=== PATIENT | male | born 1930 | race Caucasian/White ===

== ENCOUNTER 2016-11-05 12:04 | Outpatient (CLI) | payer MEDICARE, OTHER | END 2016-11-05 12:05 | disposition home or self-care (01) | DX: E78.5 Hyperlipidemia, unspecified (principal); R97.20 Elevated prostate specific antigen [PSA]; D64.9 Anemia, unspecified ==

== ENCOUNTER 2017-01-14 13:01 | Outpatient (CLI) | payer MEDICARE, OTHER ==
[2017-01-14] MEDS ORDERED: IOPAMIDOL-300 100 ML VIAL IVP ONE (14:30)
== END 2017-01-14 13:02 | disposition home or self-care (01) ==
DX: J90 Pleural effusion, not elsewhere classified (principal); J98.4 Other disorders of lung; R05 Cough; R63.4 Abnormal weight loss
CPT/HCPCS: 36415; 71260; 80048; Q9967

== ENCOUNTER 2017-05-26 13:28 | Outpatient (CLI) | payer MEDICARE, OTHER ==
[2017-05-26 19:40] LABS: PSA FREE 0.755 ng/mL (0.16-2.81)
[2017-05-26 19:41] LABS: PSA TOTAL 7.411 ng/mL (0.000-2.000)
== END 2017-05-26 13:29 | disposition home or self-care (01) ==
LOC: LAB.WCP 13:28
PROVIDERS: ATTEND Family Medicine
DX: R97.20 Elevated prostate specific antigen [PSA] (principal)
CPT/HCPCS: 36415; 84154

== ENCOUNTER 2017-07-21 15:44 | Outpatient (CLI) | payer MEDICARE, OTHER ==
[2017-07-21 19:22] LABS: HEMOGLOBIN A1C 0.3 g/dL
== END 2017-07-21 15:45 | disposition home or self-care (01) ==
LOC: LAB.WCP 15:44
PROVIDERS: ATTEND Family Medicine
DX: R73.01 Impaired fasting glucose (principal)
CPT/HCPCS: 36415; 83036

== ENCOUNTER 2018-02-17 17:23 | Emergency (ER) | payer MEDICARE, OTHER ==
--- NOTE | 2018-02-17 17:43 | ED Physician Documentation ---
PD HPI FOCAL NEURO - Stated complaint Stated Complaint: POSS STROKE - Chief complaint Chief Complaint: Neuro - History obtained from History obtained from: Patient, Family - History of Present Illness Timing - onset: Other (87-year-old gentleman who over the last couple of weeks of is said has been confused, she gives examples such as he did not know which archie to be in while driving. Over the last couple of note days they have noticed a left facial droop. The patient was kind of unaware of this. He is walking okay. He denies a headache. He is right-handed.) Review of Systems Ten Systems: 10 systems reviewed and negative Constitutional: denies: Fever, Chills Cardiac: denies: Chest pain / pressure, Palpitations Respiratory: denies: Dyspnea, Cough GI: denies: Abdominal Pain PD PAST MEDICAL HISTORY - Past Medical History Past Medical History: Yes Cardiovascular: Hypertension Respiratory: COPD, Pneumonia Neuro: None Endocrine/Autoimmune: None GI: None : Benign prostate hypertrophy HEENT: Chronic vision loss Psych: None Musculoskeletal: Osteoarthritis Derm: None - Past Surgical History General: Appendectomy Ortho: Rotator cuff repair HEENT: Cataracts, Tonsil/Adenoidectomy - Present Medications Home Medications: Ambulatory Orders Medication Instructions Recorded Confirmed Carvedilol [Coreg] 6.25 mg PO BID 08/10/16 08/11/16 Meloxicam 15 mg PO DAILY 08/10/16 08/11/16 Tamsulosin [Flomax] 0.4 mg PO DAILY 08/10/16 08/11/16 - Allergies Allergies/Adverse Reactions: Allergies Allergy/AdvReac Type Severity Reaction Status Date / Time Sulfa (Sulfonamide Allergy Rash Verified 08/10/16 13:07 Antibiotics) - Social History Does the pt smoke?: No Smoking Status: Never smoker PD ED PE NORMAL - Vitals Vital signs reviewed: Yes - General General: Alert and oriented X 3, No acute distress, Well developed/nourished - HEENT HEENT: PERRL, EOMI - Neck Neck: Supple, no meningeal sign, No bony TTP - Cardiac Cardiac: Strong equal pulses, Other (Irregularly irregular without murmur) - Respiratory Respiratory: No respiratory distress, Clear bilaterally - Abdomen Abdomen: Normal bowel sounds, Soft, Non tender - Extremities Extremities: No deformity, No tenderness to palpate, Normal ROM s pain - Neuro Neuro: Alert and oriented X 3 Eye Opening: Spontaneous Motor: Obeys Commands Verbal: Oriented GCS Score: 15 - Psych Psych: Normal mood, Normal affect NIHSS - Time Time: 17:38 - Level of Consciousness Level of consciousness: (0) Alert, Keenly responsive LOC Questions: (0) Answers both Q's correct LOC Commands: (0) Performs both correctly - Gaze Best Gaze: (0) Normal - Visual Visual: (0) No loss - Facial Palsy Facial Palsy: (2) Partial paralysis (Left-sided facial palsy) - Motor Arms (both separate) Motor Arm (right): (0) No drift Motor Arm (left): (0) No drift - Motor Legs (both separate) Motor Leg (right): (0) No drift Motor Leg (left): (0) No drift - Limb Ataxia Limb Ataxia: (0) Absent - Sensory Sensory: (0) Normal - Best Language Best Language: (0) No aphasia - Dysarthria Dysarthria: (0) Normal - Extinction and Inattention (formally neg Extinction and inattention: (0) No abnormality - Total Score/Results Total Score/Result: 2 Results - Vitals Vitals: Vital Signs - 24 hr 02/17/18 02/17/18 02/17/18 17:28 19:17 19:30 Temperature 36.8 C Heart Rate 93 85 86 Respiratory 18 19 21 Rate Blood Pressure 147/76 H 160/97 H 168/85 H O2 Saturation 95 92 93 Oxygen O2 Source Room air - EKG (time done) 1744 Rate: Rate (enter#) (85) Rhythm: Atrial fibrillation [place]: Normal QRS: Low voltage Ischemia: Non specific changes Computer interpretation: Agree with computer - Labs Labs: Laboratory Tests 02/17/18 02/17/18 02/17/18 17:38 17:38 17:38 WBC 7.0 RBC 3.50 L Hgb 12.2 L Hct 35.6 L MCV 101.7 H MCH 35.0 H MCHC 34.4 RDW 14.2 Plt Count 122 L MPV 9.1 Neut # 4.4 Lymph # 1.3 L [place] # 0.9 Eos # 0.3 Baso # 0.1 Absolute Nucleated RBC 0.00 Nucleated RBC % 0.0 Manual Slide Review Indicated WBC Morphology NORMAL APPEARANCE Platelet Estimate DECREASED (<130,000) Platelet Morphology NORMAL APPEARANCE RBC Morph Micro Appear NORMAL APPEARANCE PT 12.4 INR 1.1 Sodium 137 Potassium 3.8 Chloride 106 Carbon Dioxide 24 Anion Gap 7.0 BUN 18 Creatinine 0.8 Estimated GFR (MDRD) 91 Glucose 100 POC Whole Bld Glucose Calcium 8.7 Total Bilirubin 0.7 AST 25 ALT 31 Alkaline Phosphatase 67 Total Protein 6.5 L Albumin 4.5 Globulin 2.0 L Albumin/Globulin Ratio 2.3 H Lipase 23 02/17/18 17:48 WBC RBC Hgb Hct MCV MCH MCHC RDW Plt Count MPV Neut # Lymph # [place] # Eos # Baso # Absolute Nucleated RBC Nucleated RBC % Manual Slide Review WBC Morphology Platelet Estimate Platelet Morphology RBC Morph Micro Appear PT INR Sodium Potassium Chloride Carbon Dioxide Anion Gap BUN Creatinine Estimated GFR (MDRD) Glucose POC Whole Bld Glucose 95 Calcium Total Bilirubin AST ALT Alkaline Phosphatase Total Protein Albumin Globulin Albumin/Globulin Ratio Lipase - Rads (name of study) CT Head Radiology: EMP read contemporaneously (1. A 3.2 cm right convexity complex subdural hematoma. Appearance suggests acute on chronic bleed with a minute amount of adjacent subarachnoid blood products. Please note that occasionally a sarcoma can appear similarly although statistically is very rare. 2. A 7 mm right to left supratentorial midline shift with minimal entrapment left lateral ventricle. 3. No inferior transtentorial herniation.) PD MEDICAL DECISION MAKING - ED course ED course: 87-year-old gentleman with strokelike symptoms, found to have a subdural hemorrhage on CT. I talked to the patient and about this, they said quite some time ago, many months he did fall and scraped up the right side of his body. He is not anticoagulated. I recommended going to [facility] for this, she wanted to go somewhere closer, we will call [place]. He was accepted to the ICU there by Dr. Molina with a neurosurgeon in approximately 6:45 PM who recommended loading him with 500 mg of Keppra which was ordered. Dr. Molina wanted to concern confirm with the patient's that he would want a craniotomy, I did confirm this. He has been n.p.o. since noon. [place] were completed. Neurosurgeon felt like he should probably go to the OR [facility] for craniotomy and therefore he was flown given the urgency of the situation to a higher level of care. Departure - Departure Disposition: 02 Transfer Acute Care Hosp Clinical Impression: Subdural hemorrhage Condition: Serious Discharge Date/Time: 02/17/18 19:35
[2018-02-17 17:54] LABS: BASOPHILS # (AUTO) 0.1 10^3/uL (0.0-0.1); BASOPHILS % (AUTO) 1.3 %; EOSINOPHILS # (AUTO) 0.3 10^3/uL (0.0-0.7); EOSINOPHILS % (AUTO) 3.9 %; HGB - HEMOGLOBIN 12.2 g/dL (14.0-18.0); LYMPHOCYTES # (AUTO) 1.3 10^3/uL (1.5-3.5); LYMPHOCYTES % (AUTO) 18.1 %; MEAN CORPUSCULAR HGB CONC 34.4 g/dL (32.0-36.0); MEAN CORPUSCULAR VOLUME 101.7 fL (80.0-94.0); MEAN PLATELET VOLUME 9.1 fL (7.4-11.4); MONOCYTES # (AUTO) 0.9 10^3/uL (0.0-1.0); MONOCYTES % (AUTO) 13.5 %; NEUTROPHILS # (AUTO) 4.4 10^3/uL (1.5-6.6); NEUTROPHILS % (AUTO) 63.2 %; PLT - PLATELET COUNT 122 10^3/uL (130-450); RED CELL DISTRIBUTION WIDTH 14.2 % (12.0-15.0)
[2018-02-17 18:06] LABS: ALBUMIN 4.5 g/dL (3.2-5.5); ALBUMIN/GLOBULIN RATIO 2.3 (1.0-2.2); BILIRUBIN,TOTAL 0.7 mg/dL (0.2-1.0); CALCIUM 8.7 mg/dL (8.5-10.3); CREATININE 0.8 mg/dL (0.6-1.2); TOTAL PROTEIN 6.5 g/dL (6.7-8.2)
--- NOTE | 2018-02-17 18:19 | CT Preliminary Report ---
Exam: CT HEAD W/O IMPRESSION: 1. 3.2 cm right convexity complex subdural hematoma. Appearance suggests acute on chronic bleed with a minute amount of adjacent subarachnoid blood products. Please note that occasionally a sarcoma can appear similarly although statistically is very rare. 2. 7 mm right to left supratentorial midline shift with minimal entrapment of lateral ventricle. 3. No inferior transtentorial herniation. RADIA The above findings were discussed with ARMANDO Munson by Dr. Katlin Burns at 18:17 hrs on 02/17/18. SITE ID: [id number]
[2018-02-17 18:20] LABS: INR 1.1 (0.8-1.2); PT - PROTHROMBIN TIME 12.4 secs (9.9-12.6)
--- NOTE | 2018-02-17 18:25 | CT Report ---
EXAM: CT HEAD EXAM DATE: 02/17/2018 06:07 PM. CLINICAL HISTORY: Left-sided facial droop, confusion and unsteady gait for several days. COMPARISON: None. TECHNIQUE: Multiaxial CT images were obtained from the foramen magnum to the vertex. Reformats: Coron al. IV contrast: None. In accordance with CT protocol optimization, one or more of the following dose reduction techniques w ere utilized for this exam: automated exposure control, adjustment of mA and/or KV based on patient s ize, or use of iterative reconstructive technique. FINDINGS: Parenchyma: No intraparenchymal hemorrhage. No evidence of mass nor CT findings of acute infarction. Kramer-white differentiation is distinct. Diffuse chronic microangiopathic white matter changes are maria teresa dent. Marked mass effect on the right cerebral hemisphere due to the 3.2 cm complex right convexity subdura l hematoma. Suspect tiny amount of subdural blood products as well. Extraaxial Spaces: 3.2 cm caliber complex multiloculated and lobulated mixed density right convexity subdural lesion. Marked mass effect on the subjacent right cerebral hemisphere. Ventricles: 7 mm right to left supratentorial midline shift. Marked effacement right lateral ventricl e without entrapment of the right lateral ventricle. Left temporal tip slightly enlarged. Third ventr icle is tiny. Mild effacement both ambient cisterns. Quadrigeminal cistern widely patent. Fourth ventricle small in caliber without midline shift. Sinuses and orbits: Imaged paranasal sinuses, orbits, and mastoids show no significant abnormality. Bones: No evidence of fracture or calvarial defect. Other: None. IMPRESSION: 1. A 3.2 cm right convexity complex subdural hematoma. Appearance suggests acute on chronic bleed wit h a minute amount of adjacent subarachnoid blood products. Please note that occasionally a sarcoma ca n appear similarly although statistically is very rare. 2. A 7 mm right to left supratentorial midline shift with minimal entrapment left lateral ventricle. 3. No inferior transtentorial herniation. RADIA The above findings were discussed with ARMANDO Munson by Dr. Katlin Burns at 18:17 hrs on 02/17/18. Referring Provider Line: [phone] SITE ID: [id number]
[2018-02-17] MEDS ORDERED: levETIRAcetam INJ 500 MG in SODIUM CHLORIDE 0.9% 100ML 100 ML IV STA (18:44)
[2018-02-17 19:31] VITALS: BP 168/85
[2018-02-17 20:03] LABS: PLATELET ESTIMATE, MANUAL DECREASED (<130,000) (NORMAL); PLATELET MORPHOLOGY NORMAL APPEARANCE (NORMAL); RBC MORPHOLOGY (MULTIPLE) NORMAL APPEARANCE (NORMAL)
== END 2018-02-17 19:35 | disposition short-term general hospital (02) ==
LOC: ED 17:23
DX: I62.01 Nontraumatic acute subdural hemorrhage (principal); R29.810 Facial weakness; I10 Essential (primary) hypertension; J44.9 Chronic obstructive pulmonary disease, unspecified; N40.0 Benign prostatic hyperplasia without lower urinary tract symptoms; M19.90 Unspecified osteoarthritis, unspecified site
CPT/HCPCS: 36415; 70450; 80053; 83690; 85025; 85610; 93005; 96365; 99285

== ENCOUNTER 2018-04-21 14:44 | Outpatient (CLI) | payer MEDICARE, OTHER ==
--- NOTE | 2018-04-21 15:14 | CT Report ---
Procedure Date: 04/21/2018 Accession Number: [id number] / [id number] Procedure: CT - Head W/O CPT Code: FULL RESULT: EXAM: Head W/O DATE: 04/21/2018 3:07 PM CLINICAL HISTORY: CHRONIC SUBDURAL HEMATOMA COMPARISON: 02/17/2018 TECHNIQUE: Multiaxial CT images were obtained from the foramen magnum to the vertex. IV contrast: None. Reformats: Coronal. In accordance with CT protocol optimization, one or more of the following dose reduction techniques were utilized for this exam: automated exposure control, adjustment of mA and/or KV based on patient size, or use of iterative reconstructive technique. FINDINGS: Parenchyma: Stable right to left midline shift. No intraparenchymal mass. Extraaxial Spaces: Stable right subdural collection. There is been interval evolution of blood products. No definite acute hemorrhage is identified. Ventricles: Stable shift. No evidence of developing hydrocephalus. Sinuses: Imaged paranasal sinuses, orbits, and mastoids show no significant abnormality. Bones: No evidence of fracture or calvarial defect. Other: None. IMPRESSION: Stable right subdural collection, with right to left midline shift. No evidence of new hemorrhage. No evidence of developing hydrocephalus. RADIA
== END 2018-04-21 14:45 | disposition home or self-care (01) ==
LOC: DI 14:44
PROVIDERS: ATTEND Neurological Surgery
DX: I62.03 Nontraumatic chronic subdural hemorrhage (principal)
CPT/HCPCS: 70450